=== PATIENT | female | born 1955 | race Caucasian/White ===

== ENCOUNTER 2017-05-20 08:18 | Day surgery (SDC) | payer MEDICAID, SELFPAY ==
--- NOTE | 2017-05-14 12:48 | EKG12_ITS ---
Test Reason : PRE OP Blood Pressure : / mmHG Vent. Rate : 050 BPM Atrial Rate : 050 BPM P-R Int : 170 ms QRS Dur : 096 ms QT Int : 438 ms P-R-T Axes : -04 -11 046 degrees QTc Int : 399 ms Sinus bradycardia Otherwise normal ECG Confirmed by HIGINIO CHAPMAN, HANY ([id number]), subeditor LJ HERNANDEZ ([id number]) on 05/15/2017 2:21:12 PM Referred By: Darryl Costello Confirmed By:HANY SYLVESTER MD
[2017-05-14 13:30] LABS: Hematocrit 41.7 % (37-47); Hemoglobin 13.6 g/dl (12.0-15.0); Mean Corp Hgb Conc 32.6 g/gl (32-36); Mean Corpuscular Hgb 31.3 pg (27.0-32.0); Mean Corpuscular Volume 96.1 fL (81-99); Mean Platelet Vol. 9.4 fl (6.2-12.0); Platelet Count 289 K/mm3 (150-450); RBC Distribution Width CV 13.8 % (11.6-14.6); RBC Distribution Width SD 47.4 fl (35.1-43.9); Red Blood Count 4.34 M/mm3 (4.2-5.4); Scan Indicated on CBC? Y/N NO
[2017-05-14 13:34] LABS: Prothrombin Time (Protime)PT. 12.8 SECONDS (11.7-14.9)
[2017-05-14 14:05] LABS: Partial Thromboplast Time 26.3 Seconds (24.1-36.2)
[2017-05-20] VITALS (7 sets, daily range): BP systolic 111–141; BP diastolic 60–80; PULSE 59–66; RESP 16; TEMP 36.2–36.7; O2SAT 95–100; BMI 37.6
[2017-05-20 09:01] LABS: Bedside Glucose 116 mg/dL (70-110)
--- NOTE | 2017-05-20 09:55 | EMB_PTH ---
PATIENT: DINESH LEDBETTER LOC: [facility] [place] U#:[id number] AGE/SX: 61/F ROOM: RE05/20/[address]: Dr. Darryl Costello MD : 1955 BED: DIS: 05/20/2017 SPEC #: [id number] RECD: 05/20/17 12:35 STATUS: AURELIA MYA #: [id number] RYAN: 05/20/17 09:[address]: Darryl Costello DEPT: SURGICAL PATHOLOGY RECD BY: Yaakov Snyder ENTERED: 05/20/17 13:08 SP TYPE: ENDOM BX/C NORMA DR: Dr. Selma Walker MD Tissues: Endometrium, NOS Procedures: Surgery Specimen Level IV HEADER OPERATION: Hysteroscopy, dilation and curettage PRE-OP DIAGNOSIS: Postmenopausal bleeding TISSUE SUBMITTED: Endometrial curettings MICROSCOPIC DIAGNOSIS Endometrium, curettings: Rare strips of benign superficial endometrium. Rare strips of benign superficial endocervix. Strips of benign superficial ectocervix. AM:georgina 05/21/17 MICROSCOPIC DESCRIPTION Slides are reviewed. GROSS DESCRIPTION Received in fixative is one container labeled with the patient's name and designated endometrial curettings. The specimen consists of multiple irregular fragments of red-batres soft tissue that in aggregate measure 3 x 1.5 x 0.1 cm. The specimen is totally submitted in one cassette. / AM:georgina 05/20/17 TC:5 CPT: 51401
--- NOTE | 2017-05-20 10:15 | PCM.DC ---
You will use the following diet at home:: No restrictions Your food should be the consistency of: Regular Discharge Activity: Return to Normal Activity, No Restrictions, May Drive, May not drive while taking narcotic pain medications., May Shower Return to work on:: 05/25/17 May resume sexual activity in: 3 weeks Call your doctor if your incision/area has: Sudden Increased Bleeding, Foul Smelling Discharge Call your doctor if you observe: Fever of 101 or Higher, Inability to urinate, Inability to have a bowel movement, Using more than one pad per hour, Shortness of breath, Chest pain, Calf discomfort, Uncontrolled pain Cleanse incision/area with: Soap & Water Allergies/Adverse Reactions: Allergies adhesive Allergy (Verified 05/13/17 09:55) Rash Iodinated Contrast- Oral and IV Dye [Iodinated Contrast Media - IV Dye] Allergy (Verified 05/13/17 09:55) Hives Medications to take at Discharge Cyanocobalamin [Vitamin B12] 500 mcg PO DAILY@0800 05/16/13 Paroxetine HCl [Paxil] 20 mg PO DAILY 05/16/13 calcium carbonate 500 mg calcium (1,250 mg) chewable tablet 500 mg PO BID tab 03/12/17 docusate sodium 100 mg capsule 100 mg PO QDAY 03/12/17 insulin glargine (U-100) 100 unit/mL (3 mL) subcutaneous pen 20 - 40 unit SC QHS 03/12/17 losartan 50 mg tablet 50 mg PO QHS 03/12/17 magnesium oxide 400 mg capsule 400 mg PO QDAY cap 03/12/17 metoprolol succinate ER 25 mg tablet,extended release 24 hr 25 mg PO DAILY tab 03/12/17 omega 0-nox-ukm-fish oil 1,000 mg (120 mg-180 mg) capsule 1,000 cap PO DAILY 03/12/17 vitamin,calcium,krflcwxa-ahal-wpxba acid tablet 1 tab PO QDAY 03/12/17 Ibuprofen [Motrin] 800 mg PO TID PRN PRN #30 tab 05/20/17 Oxycodone [Oxyir] 5 mg PO Q4H PRN PRN 3 Days #10 tab 05/20/17 The following prescriptions were given: Oxycodone [Oxyir] 5 mg PO Q4H PRN PRN 3 Days #10 tab PRN Reason: Severe Pain (6-12/02) Ibuprofen [Motrin] 800 mg PO TID PRN PRN #30 tab PRN Reason: pain or cramping Primary Care Physician: Selma Walker MD [Primary Care Provider] - Please Follow Up With: Darryl Costello MD When: one week Proposed Discharge Date: 05/20/17
--- NOTE | 2017-05-20 10:19 | PCM.OPRPT ---
Problem List (1) Post-menopausal bleeding Status: Chronic Report of Operation Date of Procedure: 05/20/17 Pre-Operative Diagnosis: Postmenopausal bleeding Post-Operative Diagnosis: Same Surgery/Procedure Performed:: Hysteroscopy, Dilation and Curettage Description of Surgical Findings:: Normal appearing cervix and endometrial cavity. Endometrial lining appeared thin. No polyps observed. grocery team member: None Type of Anesthesia:: MAC Anesthesiologist: Jono Patrick Special Medications: none Specimen's removed: Endometrial Curettings Drains: none Estimated Blood Loss (mL): minimal Fluids Replaced: 400cc LR Description of Procedure: Glendy was taken to the OR with IV running. She was given two grams of Cefotetan intravenously for surgical prophylaxis. MAC anesthesia was then introduced without complication. She was then prepped and draped in the dorsal lithotomy position. A red rubber catheter was used to drain the bladder. A weighted speculum was placed in the posterior vagina, the cervix identified and the anterior lip grasped with a single toothed tenaculum. The uterus was then sounded to 7 cm. The cervix was then serially dilated to 24 Syriac. A hysteroscope was then placed into the uterine cavity and findings were as mentioned above. The hysteroscope was removed and a sharp curettage was performed. Minimal tissue was obtained. The hysteroscope was replaced. All instruments were then removed from the vagina and uterus. Hemostasis was excellent. She was reversed from anesthesia and taken to the recovery room in stable condition. Sponge counts were correct. Grafts/Implants Used: none - Complications none - Admit VTE Documentation VTE Present on Admission: No VTE Mechan Device Prophylaxis: SCD's VTE Pharm Prophylaxis ordered?: No
== END 2017-05-20 11:35 | disposition home or self-care (01) ==
LOC: SDC 08:20 → AC 08:20
PROVIDERS: Family Provider Family Medicine; PCP Family Medicine; Visit Provider Obstetrics & Gynecology
PROC: 0UDB8ZZ Extraction of Endometrium, Via Natural or Artificial Opening Endoscopic (ICD-10-PCS; CPT 58558; principal; 2017-05-20 09:45)
DX: N95.0 Postmenopausal bleeding (principal); I49.3 Ventricular premature depolarization; E11.9 Type 2 diabetes mellitus without complications; I10 Essential (primary) hypertension; G47.30 Sleep apnea, unspecified; F32.9 Major depressive disorder, single episode, unspecified; F41.9 Anxiety disorder, unspecified; Z98.84 Bariatric surgery status; Z79.4 Long term (current) use of insulin; Z79.899 Other long term (current) drug therapy
CPT/HCPCS: 00952; 58558; 36415; 82962; 85027; 85610; 85730; 86850; 86900; 88305; J7120

== ENCOUNTER → 2017-08-19 14:33 | Outpatient (CLI) | payer MEDICAID, SELFPAY ==
--- NOTE | 2017-08-19 14:36 | BI_ITS ---
MAMMOGRAPHY - BILATERAL SCREENING REASON FOR EXAM: Female, 62 years old. Routine annual screening examination. PERTINENT HISTORY: Non-contributory. Remote right excisional breast biopsy. TECHNIQUE: Digital bilateral breast pieter (3D mammographic acquisition) in the CC and MLO projections. 2-D mediolateral oblique (MLO) and craniocaudad (CC) views of both breasts were obtained. CAD: Full Field Digital Mammography with Computer Added Detection was performed. COMPARISON: Comparison is made with prior examination June 19, 2014. FINDINGS: Breast Composition: The breasts are heterogeneously dense, which may obscure small masses. There are no dominant masses or suspicious calcifications. There is a 6.7 mm x 6 mm nodule in the upper medial portion of the left breast. Correlation with ultrasound is recommended. No other significant abnormalities are identified. BI/SCREENING MAMM (CAD), BILAT IMPRESSION: Subcentimeter nodule in the upper medial portion of the left breast as described. Correlation with ultrasound is recommended. ASSESSMENT CATEGORY: BIRADS Category 0: Incomplete. Need additional imaging evaluation. A letter regarding these results will be sent to the patient by the facility within 30 days. Approximately 10% of breast cancers are not detected by mammography. A normal mammogram should not delay biopsy of a clinically suspicious abnormality. [id number] Electronically Signed: Delbert Allen MD at 14:07 EDT Tel [phone], Service support ,
== END ==
PROVIDERS: Family Provider Family Medicine; PCP Family Medicine; Visit Provider Family Medicine
DX: Z12.31 Encounter for screening mammogram for malignant neoplasm of breast (principal)
CPT/HCPCS: 77063; 77067

== ENCOUNTER → 2017-08-31 14:10 | Outpatient (CLI) | payer MEDICAID, SELFPAY ==
--- NOTE | 2017-08-31 14:13 | US_ITS ---
STUDY: ULTRASOUND BREAST - LEFT REASON FOR EXAM: Female, 62 years old. Abnormal screening mammogram. TECHNIQUE: Axial and longitudinal images of the LEFT breast were performed with a high resolution ultrasound transducer. COMPARISON: Comparison is made with prior mammogram dated August 19, 2017. FINDINGS: LEFT Breast: There is a 6 mm x 6 mm x 3 mm well-defined hypoechoic solid nodule at the 12:00 position of the breast at 3 cm from the nipple. US/Breast Limited Unilateral IMPRESSION: The mammographic abnormality corresponds to a 6 mm x 6 mm x 3 mm well-defined hypoechoic nodule at the 12:00 breast at 3 cm from nipple. A biopsy is recommended for further evaluation. ASSESSMENT CATEGORY: BIRADS Category 4: Suspicious - Biopsy Should Be Considered. A letter regarding these results will be sent to the patient by the facility within 30 days. Electronically Signed: Delbert Allen MD at 8:20 EDT Tel [phone], Service support ,
== END ==
PROVIDERS: Family Provider Family Medicine; PCP Family Medicine; Visit Provider Family Medicine
DX: R92.8 Other abnormal and inconclusive findings on diagnostic imaging of breast (principal)
CPT/HCPCS: 76642

== ENCOUNTER → 2017-09-07 15:05 | Outpatient (CLI) | payer MEDICAID, SELFPAY ==
--- NOTE | 2017-09-07 14:15 | BRBX_PTH ---
PATIENT: DINESH LEDBETTER LOC: [facility] U#:[id number] AGE/SX: 69/F ROOM: RE09/07/[address]: Dr. Raghav Holman MD : 1955 BED: DIS: SPEC #: [id number] RECD: 09/07/17 15:04 STATUS: AURELIA MYA #: [id number] RYAN: 09/07/17 14:[address]: Raghav Holman DEPT: SURGICAL PATHOLOGY RECD BY: Alberto Butler ENTERED: 09/08/17 09:34 SP TYPE: BREAST BX OTHR DR: Dr. Selma Walker MD Tissues: Left breast, NOS Procedures: Surgery Specimen Level IV HEADER OPERATION: Ultrasound-guided mammotome biopsy left breast PRE-OP DIAGNOSIS: Abnormal mammogram R92.8 TISSUE SUBMITTED: Mammotome biopsy left breast ISCHEMIC TIME: 1 minute FIXATION TIME: 29 hours MICROSCOPIC DIAGNOSIS Left breast, ultrasound-guided mammotome core biopsy: Fibrocystic changes. Negative for atypia or malignancy. RUBINA:georgina 09/09/17 COMMENT Correlation with clinical, radiologic findings and appropriate follow up are necessary. MICROSCOPIC DESCRIPTION Slides are reviewed. GROSS DESCRIPTION Received in fixative is one container labeled with the patient's name and designated left breast tissue. The specimen consists of multiple irregular fragments of yellow-white soft tissue that in aggregate measure 1.2 x 0.6 x 0.1 cm. The specimen is totally submitted in one cassette. / AM:georgina 09/08/17 TC:5 CPT: 64978
== END ==
PROVIDERS: Visit Provider Surgery
DX: R92.8 Other abnormal and inconclusive findings on diagnostic imaging of breast (principal)
CPT/HCPCS: 88305

== ENCOUNTER → 2018-02-10 13:42 | Outpatient (CLI) | payer MEDICAID, SELFPAY ==
--- NOTE | 2018-02-10 13:44 | BI_ITS ---
MAMMOGRAPHY - UNILATERAL DIAGNOSTIC: LEFT BREAST REASON FOR EXAM: Female, 62 years old. Six-month follow-up examination of the left breast biopsy. PERTINENT HISTORY: Non-contributory. TECHNIQUE: Digital unilateral breast pieter (3D mammographic acquisition) in the CC and MLO projections. 2-D mediolateral oblique (MLO) and craniocaudad (CC) views of both breasts were obtained. CAD: Full Field Digital Mammography with Computer Added Detection was performed. COMPARISON: Comparison is made with prior study dated August 31, 2017 and August 20, 2007. FINDINGS: Breast Composition: The breasts are heterogeneously dense, which may obscure small masses. There are no dominant masses or suspicious calcifications. A tissue clip marker is seen in the superior retroareolar region of the breast and keep with prior biopsy. No other significant abnormalities are identified. BI/DIAG MAMM W/CAD, UNILAT IMPRESSION: Stable unilateral diagnostic mammogram. One year follow-up mammogram recommended. (A) ASSESSMENT CATEGORY: BIRADS Category 2: Benign. A letter regarding these results will be sent to the patient by the facility within 30 days. Approximately 10% of breast cancers are not detected by mammography. A normal mammogram should not delay biopsy of a clinically suspicious abnormality. Electronically Signed: Delbert Allen MD at 15:00 EST Tel [phone], Service support ,
--- NOTE | 2018-02-10 13:45 | US_ITS ---
STUDY: ULTRASOUND BREAST - LEFT REASON FOR EXAM: Female, 62 years old. Follow-up for left breast biopsy. TECHNIQUE: Axial and longitudinal images of the LEFT breast were performed with a high resolution ultrasound transducer. COMPARISON: Comparison is made with prior ultrasound dated August 31, 2017 and prior mammogram done earlier today. FINDINGS: LEFT Breast: There is a 6 mm x 6 mm x 3 mm hypoechoic nodule at the 12:00 position breast at 3 cm from the nipple. A metallic clip is seen within it. US/Breast Limited Unilateral IMPRESSION: 6 mm x 6 mm x 3 mm hypoechoic nodule at the 12:00 position in the breast at 3 cm from nipple. A tissue clip marker is significant. ASSESSMENT CATEGORY: BIRADS Category 2: Benign. A letter regarding these results will be sent to the patient by the facility within 30 days. Electronically Signed: Delbert Allen MD at 15:11 EST Tel [phone], Service support ,
--- OUTSIDE RECORDS SUMMARY | 2018-05-14 20:23 | XMS RPT_ITS ---
:1955 Author Organization OHIP Support Name Relationship Address Phone KHLOE, LUANNE Unavailable [address] + [place] [address] UE Unavailable Unavailable Unavailable KHLOE, LUANNE Unavailable [address] + [place] [address] UE Unavailable Unavailable Unavailable KHLOE, LUANNE Unavailable [address] +[phone] [place] [address] UE Unavailable Unavailable Unavailable KHLOE, LUANNE Unavailable [address] + [place] [address] UE Unavailable Unavailable Unavailable KHLOE, LUANNE Unavailable [address] + [place] [address] UE Unavailable Unavailable Unavailable KHLOE, LUANNE Unavailable [address] + [place] [address] UE Unavailable Unavailable Unavailable KHLOE, LUANNE Unavailable [address] + [place] [address] UE Unavailable Unavailable Unavailable KHLOE, LUANNE Unavailable [address] + [place] [address] UE Unavailable Unavailable Unavailable KHLOE, LUANNE Unavailable [address] +[phone] [place] [address] UE Unavailable Unavailable Unavailable KHLOE, LUANNE Unavailable [address] +[phone] [place] [address] UE Unavailable Unavailable Unavailable KHLOE, NORY Unavailable [address] +[phone] [place] [address] KHLOE, NORY Unavailable [address] [place] [address] NOT GIVEN Unavailable Unavailable Unavailable Care Team Providers Name Role Phone SELMA WALKER MD Consulting Unavailable WILLIAM DANIEL DO Primary Care Unavailable WILLIAM DANIEL DO Attending Unavailable WILLIAM DANIEL DO Admitting Unavailable PROVIDER, UNKNOWN Consulting Unavailable PROVIDER, UNKNOWN Consulting Unavailable Miedel, Selma Attending Unavailable Miedel, Selma Referring Unavailable Miedel, Selma Primary Care Unavailable SealDarryl johnson Attending Unavailable Miedel, Selma Primary Care Unavailable Seals, Darryl Referring Unavailable Miedel, Selma Attending Unavailable Miedel, Selma Primary Care Unavailable Otis, Waxahachie Attending Unavailable Seals, Darryl Referring Unavailable Miedel, Selma Attending Unavailable Miedel, Selma Primary Care Unavailable Manda, Raghav Attending Unavailable Miedel, Selma Referring Unavailable Miedel, Selma Primary Care Unavailable Deltona, Raghav Attending Unavailable Miedel, Selma Referring Unavailable Miedel, Selma Primary Care Unavailable [place]tona, Raghav Attending Unavailable Miedel, Selma Primary Care Unavailable [place], Raghav Referring Unavailable [place], Raghav Attending Unavailable Miedel, Selma Referring Unavailable ChicorelHeather péreze Attending Unavailable Miedel, Selma Referring Unavailable PROBLEMS PROBLEMS DATE TYPE CONDITION / CODE ATTENDING STATUS SOURCE 10/16/2017 Unknown 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, 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 / [facility] M75.42(ICD-10) Repository 09/08/2017 Unknown R92.8 - Other [place]tona, Raghav Active [facility] abnormal and Community inconclusive Hospital findings on Repository diagnostic imaging of breast / R92.8(ICD-10) 08/19/2017 Unknown Z12.31 - Encounter Miedel, Selma Active [facility] for screening Community mammogram for Hospital malignant neoplasm Repository of breast / Z12.31(ICD-10) 05/21/2017 Unknown G89.18 - Other acute Darryl Costello Active [facility] postprocedural pain Community / G89.18(ICD-10) Hospital Repository 06/24/2017 Unknown I10 - Essential Otis, Rogerio Active [facility] (primary) Community hypertension / Hospital I10(ICD-10) Repository 06/24/2017 Unknown R00.1 - Bradycardia, Otis, [place] Active [facility] unspecified / Community R00.1(ICD-10) Hospital Repository PROCEDURES PROCEDURES No Procedure Records FoundRESULTS RESULTS BREAST LIMITED Observed: 02/10/2018 Status: F Source: [facility] UNILATERAL 1:46 PM [facility] REPOSITORY [facility] Imaging Services [address] [place] [address] Breast Limited Unilateral MR#: [id number] Acct: [id number] Name: DINESH LEDBETTER Rep #: [id number] : 1955 F 62 From: Delbert Allen MD PCP: Selma Walker MD Status: REG CLI Study: Breast Limited Unilateral Date of Exam: 02/10/18 Exam# [id number] Ordering Dr: Selma Walker MD STUDY: ULTRASOUND BREAST - LEFT REASON FOR EXAM: Female, 62 years old. Follow-up for left breast biopsy. TECHNIQUE: Axial and longitudinal images of the LEFT breast were performed with a high resolution ultrasound transducer. COMPARISON: Comparison is made with prior ultrasound dated August 31, 2017 and prior mammogram done earlier today. FINDINGS: LEFT Breast: There is a 6 mm x 6 mm x 3 mm hypoechoic nodule at the 12:00 position breast at 3 cm from the nipple. A metallic clip is seen within it. US/Breast Limited Unilateral IMPRESSION: 6 mm x 6 mm x 3 mm hypoechoic nodule at the 12:00 position in the breast at 3 cm from nipple. A tissue clip marker is significant. ASSESSMENT CATEGORY: BIRADS Category 2: Benign. A letter regarding these results will be sent to the patient by the facility within 30 days. Electronically Signed: Delbert Allen MD at 15:11 EST Tel [phone], Service support , CC: Selma Walker MD Veneer Clipper: Signed DIAG MAMM W/CAD, Observed: 02/10/2018 Status: F Source: [place] 1:44 PM [facility] Imaging Services [address] [place] [address] DIAG MAMM W/CAD, UNILAT MR#: [id number] Acct: [id number] Name: DINESH LEDBETTER Rep #: [id number] : 1955 F 62 From: Delbert Allen MD PCP: Selma Walker MD Status: REG CLI Study: DIAG MAMM W/CAD, UNILAT Date of Exam: 02/10/18 Exam# [id number] Ordering Dr: Raghav Holman MD MAMMOGRAPHY - UNILATERAL DIAGNOSTIC: LEFT BREAST REASON FOR EXAM: Female, 62 years old. Six-month follow- up examination of the left breast biopsy. PERTINENT HISTORY: Non-contributory. TECHNIQUE: Digital unilateral breast pieter (3D mammographic acquisition) in the CC and MLO projections. 2-D mediolateral oblique (MLO) and craniocaudad (CC) views of both breasts were obtained. CAD: Full Field Digital Mammography with Computer Added Detection was performed. COMPARISON: Comparison is made with prior study dated August 31, 2017 and August 20, 2007. FINDINGS: Breast Composition: The breasts are heterogeneously dense, which may obscure small masses. There are no dominant masses or suspicious calcifications. A tissue clip marker is seen in the superior retroareolar region of the breast and keep with prior biopsy. No other significant abnormalities are identified. BI/DIAG MAMM W/CAD, UNILAT IMPRESSION: Stable unilateral diagnostic mammogram. One year follow-up mammogram recommended. (A) ASSESSMENT CATEGORY: BIRADS Category 2: Benign. A letter regarding these results will be sent to the patient by the facility within 30 days. Approximately 10% of breast cancers are not detected by mammography. A normal mammogram should not delay biopsy of a clinically suspicious abnormality. Electronically Signed: Delbert Allen MD at 15:00 EST Tel [phone], Service support , CC: Raghav Holman MD; Selma Walker MD Veneer Clipper: Signed ORTHOPEDIC VISIT Observed: 10/15/2017 Status: F Source: [place] REPORT 4:39 PM [facility] REPOSITORY [facility] Orthopaedics AND Sports Medicine [address] [place] [address] [address] [place] [address] OFFICE VISIT Date of Service: 10/15/17 MR#: [id number] Acct: [id number] Name: DINESH LEDBETTER Rep #: [id number] : 1955 Provider: Marlena Strong DO Age/Sex: 62/F Location: [facility] Status: Signed Intake Intake Visit Reasons: LEFT SHOULDER PAIN Is patient in pain?: Yes Allergies adhesive Allergy (Verified 10/15/17 15:27) Rash Iodinated Contrast- Oral and IV Dye [Iodinated Contrast Media - IV Dye] Allergy (Verified 10/15/17 15:27) Hives Medications Cyanocobalamin [Vitamin B12] 500 mcg PO DAILY@0800 05/16/13 [History Confirmed 10/15/17] Paroxetine HCl [Paxil] 20 mg PO DAILY 05/16/13 [History Confirmed 10/15/17] calcium carbonate 500 mg calcium (1,250 mg) chewable tablet 500 mg PO BID tab 03/12/17 [History Confirmed 10/15/17] docusate sodium 100 mg capsule 100 mg PO QDAY 03/12/17 [History Confirmed 10/15/17] losartan 50 mg tablet 50 mg PO QHS 03/12/17 [History Confirmed 10/15/17] magnesium oxide 400 mg capsule 400 mg PO QDAY cap 03/12/17 [History Confirmed 10/15/17] metoprolol succinate ER 25 mg tablet,extended release 24 hr 25 mg PO DAILY tab 03/12/17 [History Confirmed 10/15/17] omega 9-ghi-dvf-fish oil 1,000 mg (120 mg-180 mg) capsule 1,000 cap PO DAILY 03/12/17 [History Confirmed 10/15/17] vitamin,calcium,awifqanm-fraj-xwyyq acid tablet 1 tab PO QDAY 03/12/17 [History Confirmed 10/15/17] acetaminophen 500 mg tablet 500 mg PO Q4H PRN 09/03/17 [History Confirmed 10/15/17] biotin 1,000 mcg chewable tablet 4,000 mcg PO QDAY tab 09/03/17 [History Confirmed 10/15/17] chlorpheniramine 4 mg tablet 4 mg PO QHS tab 09/03/17 [History Confirmed 10/15/17] cholecalciferol (vitamin D3) 2,000 unit capsule 2,000 unit PO QDAY 09/03/17 [History Confirmed 10/15/17] PFSH Medical History Abnormal mammogram of left breast (Acute) Anxiety (Acute) Breast cyst (Acute) Frequent headaches (Acute) Hives (Acute) ulcers (Acute) Acid reflux (Chronic) Diabetes (Chronic) Hypertension (Chronic) Obstructive sleep apnea (Chronic) Seasonal allergies (Chronic) Surgical History History of dilatation and curettage (Acute) History of gastric bypass (Acute) History of right breast biopsy (Acute) Ganglion cyst (Inactive) H/O bariatric surgery (Inactive) H/O breast biopsy (Inactive) H/O dilation and curettage (Inactive) H/O umbilical hernia repair (Inactive) History of carpal tunnel surgery (Inactive) S/P carpal tunnel release (Inactive) corrected surgery of gland (Inactive) exploration right heel (Inactive) Family History Mother CVA (cerebral vascular accident) Hypertension Diabetes Father Arthritis Other Blood clotting disorder Cancer Social History Smoking Status: Never smoker alcohol intake: never substance use type: does not use HPI LEFT SHOULDER PAIN: Details: DINESH LEDBETTER is a 62 year old F here today for left shoulder pain. She notes that her shoulder is worse at night. Patient notes that she has difficulty sleeping. She raises her arm into the air and her pain decreases. Her shoulder is sore during the day. She has increased pain with range of motion. Patient feels like she has shoulder weakness. Patient complains of her fingers shaking which has worsened recently. She had an injection on 03/12/17 which was helpful for many months. Patient denies any MRI. ROS Const Reports system reviewed and no additional complaints, except as docu Eyes Reports system reviewed and no additional complaints, except as docu ENT Reports system reviewed and no additional complaints, except as docu Card Reports system reviewed and no additional complaints, except as docu Resp Reports system reviewed and no additional complaints, except as docu GI Reports system reviewed and no additional complaints, except as docu Reports system reviewed and no additional complaints, except as docu Musc Reports joint pain, Reports muscle weakness Skin/Breast Reports system reviewed and no additional complaints, except as docu Neuro Yes system reviewed and no additional complaints, except as docu Psych Reports system reviewed and no additional complaints, except as docu Endo Reports system reviewed and no additional complaints, except as docu Assessment AND Plan Plan if patient having issues, told to return. inejctions working so far and will continue to do injections and if needs another one may consider MRI to evaluate for surgical intervention. Orders Orders: Medications New: Coding Level of Care Code No Charge 10/15/17 1639 <Electronically signed by Marlena Strong DO> Date Marlena Strong DO Cosigner Signature: Date (if applicable) CC: SURGERY VISIT REPORT Observed: 09/22/2017 Status: F Source: [place] 4:56 PM [facility] REPOSITORY [facility] [address] [place] [address] [address] [place] [address] OFFICE VISIT Date of Service: 09/15/17 MR#: [id number] Acct: [id number] Name: KHLOEDINESH Chito Rep #: [id number] : 1955 Provider: Raghav Holman MD Age/Sex: 62/F Location: [facility] Status: Signed Intake Intake Visit Reasons: FU Lt Breast Mammotone Allergies adhesive Allergy (Verified 09/07/17 13:57) Rash Iodinated Contrast- Oral and IV Dye [Iodinated Contrast Media - IV Dye] Allergy (Verified 09/07/17 13:57) Hives Medications Cyanocobalamin [Vitamin B12] 500 mcg PO DAILY@0800 05/16/13 [History Confirmed 09/07/17] Paroxetine HCl [Paxil] 20 mg PO DAILY 05/16/13 [History Confirmed 09/07/17] calcium carbonate 500 mg calcium (1,250 mg) chewable tablet 500 mg PO BID tab 03/12/17 [History Confirmed 09/07/17] docusate sodium 100 mg capsule 100 mg PO QDAY 03/12/17 [History Confirmed 09/07/17] losartan 50 mg tablet 50 mg PO QHS 03/12/17 [History Confirmed 09/07/17] magnesium oxide 400 mg capsule 400 mg PO QDAY cap 03/12/17 [History Confirmed 09/07/17] metoprolol succinate ER 25 mg tablet,extended release 24 hr 25 mg PO DAILY tab 03/12/17 [History Confirmed 09/07/17] omega 9-ats-ufq-fish oil 1,000 mg (120 mg-180 mg) capsule 1,000 cap PO DAILY 03/12/17 [History Confirmed 09/07/17] vitamin,calcium,tomrwgha-epxo-bejbh acid tablet 1 tab PO QDAY 03/12/17 [History Confirmed 09/07/17] acetaminophen 500 mg tablet 500 mg PO Q4H PRN 09/03/17 [History Confirmed 09/07/17] biotin 1,000 mcg chewable tablet 4,000 mcg PO QDAY tab 09/03/17 [History Confirmed 09/07/17] chlorpheniramine 4 mg tablet 4 mg PO QHS tab 09/03/17 [History Confirmed 09/07/17] cholecalciferol (vitamin D3) 2,000 unit capsule 2,000 unit PO QDAY 09/03/17 [History Confirmed 09/07/17] [facility] Medical History Abnormal mammogram of left breast (Acute) Anxiety (Acute) Breast cyst (Acute) Frequent headaches (Acute) Hives (Acute) ulcers (Acute) Acid reflux (Chronic) Diabetes (Chronic) Hypertension (Chronic) Obstructive sleep apnea (Chronic) Seasonal allergies (Chronic) Surgical History History of dilatation and curettage (Acute) History of gastric bypass (Acute) History of right breast biopsy (Acute) Ganglion cyst (Inactive) H/O bariatric surgery (Inactive) H/O breast biopsy (Inactive) H/O dilation and curettage (Inactive) H/O umbilical hernia repair (Inactive) History of carpal tunnel surgery (Inactive) S/P carpal tunnel release (Inactive) corrected surgery of gland (Inactive) exploration right heel (Inactive) Family History Mother CVA (cerebral vascular accident) Hypertension Diabetes Father Arthritis Other Blood clotting disorder Cancer Social History Smoking Status: Never smoker alcohol intake: never substance use type: does not use HPI HPI HPI: DINESH LEDBETTER, is a 62 F who presents to the office today for postoperative evaluation for a ultrasound-guided hand-held mammotome core biopsy of her left breast which was completed on 09/07/2017. Pathology report came back as fibrocystic changes and negative for atypia or malignancy she is complaining of moderate amount of bruising. Exam Skin Other: Minimal bruising is identified there is no signs of cellulitis Assessment AND Plan Problems 1. Fibrocystic disease of left breast N60.12 Plan Patient will need to have a repeat mammogram and ultrasound on the left breast 6 months from the date of her last mammogram and ultrasound. She can follow up with me on an as-needed basis Orders Orders: Coding Level of Care Code Off vis,est,level 2 Diagnoses Fibrocystic disease of left breast N60.12 Laterality: left 09/22/17 1656 <Electronically signed by Raghav Holman MD> Date Raghav Holman MD Cosigner Signature: Date (if applicable) CC: Selma Walker MD SURGERY VISIT REPORT Observed: 09/14/2017 Status: F Source: [place] 1:18 PM [facility] REPOSITORY [facility] [address] [place] [address]. [address] [place], [place] [address] OFFICE VISIT Date of Service: 09/07/17 MR#: [id number] Acct: [id number] Name: DINESH LEDBETTER Rep #: [id number] : 1955 Provider: Raghav Holman MD Age/Sex: 62/F Location: [facility] Status: Signed Intake Intake Visit Reasons: L Breast BX Mammotone Tso Required: No Is patient in pain?: No Allergies adhesive Allergy (Verified 09/07/17 13:57) Rash Iodinated Contrast- Oral and IV Dye [Iodinated Contrast Media - IV Dye] Allergy (Verified 09/07/17 13:57) Hives Medications Cyanocobalamin [Vitamin B12] 500 mcg PO DAILY@0800 05/16/13 [History Confirmed 09/07/17] Paroxetine HCl [Paxil] 20 mg PO DAILY 05/16/13 [History Confirmed 09/07/17] calcium carbonate 500 mg calcium (1,250 mg) chewable tablet 500 mg PO BID tab 03/12/17 [History Confirmed 09/07/17] docusate sodium 100 mg capsule 100 mg PO QDAY 03/12/17 [History Confirmed 09/07/17] losartan 50 mg tablet 50 mg PO QHS 03/12/17 [History Confirmed 09/07/17] magnesium oxide 400 mg capsule 400 mg PO QDAY cap 03/12/17 [History Confirmed 09/07/17] metoprolol succinate ER 25 mg tablet,extended release 24 hr 25 mg PO DAILY tab 03/12/17 [History Confirmed 09/07/17] omega 8-rpj-hxh-fish oil 1,000 mg (120 mg-180 mg) capsule 1,000 cap PO DAILY 03/12/17 [History Confirmed 09/07/17] vitamin,calcium,creqkrgb-tasn-muxpd acid tablet 1 tab PO QDAY 03/12/17 [History Confirmed 09/07/17] acetaminophen 500 mg tablet 500 mg PO Q4H PRN 09/03/17 [History Confirmed 09/07/17] biotin 1,000 mcg chewable tablet 4,000 mcg PO QDAY tab 09/03/17 [History Confirmed 09/07/17] chlorpheniramine 4 mg tablet 4 mg PO QHS tab 09/03/17 [History Confirmed 09/07/17] cholecalciferol (vitamin D3) 2,000 unit capsule 2,000 unit PO QDAY 09/03/17 [History Confirmed 09/07/17] [facility] Medical History Abnormal mammogram of left breast (Acute) Anxiety (Acute) Breast cyst (Acute) Frequent headaches (Acute) Hives (Acute) ulcers (Acute) Acid reflux (Chronic) Diabetes (Chronic) Hypertension (Chronic) Obstructive sleep apnea (Chronic) Seasonal allergies (Chronic) Surgical History History of dilatation and curettage (Acute) History of gastric bypass (Acute) History of right breast biopsy (Acute) Ganglion cyst (Inactive) H/O bariatric surgery (Inactive) H/O breast biopsy (Inactive) H/O dilation and curettage (Inactive) H/O umbilical hernia repair (Inactive) History of carpal tunnel surgery (Inactive) S/P carpal tunnel release (Inactive) corrected surgery of gland (Inactive) exploration right heel (Inactive) Family History Mother CVA (cerebral vascular accident) Hypertension Diabetes Father Arthritis Other Blood clotting disorder Cancer Social History Smoking Status: Never smoker alcohol intake: never substance use type: does not use HPI HPI HPI: DINESH LEDBETTER, is a 62 F who presents to the office today for Office Procedures Biopsy Provider Documentation Preoperative diagnosis: Abnormal mammogram/ultrasound to left breast Postoperative diagnosis: The same Procedure: Ultrasound-guided hand-held mammotome breast biopsy of left breast Mariah Holman Procedure: Ultrasound of the left breast at the 12 o'clock position 3 cm from the nipple revealed the lesion in question. I prepped the breast with Betadine. I injected 1% lidocaine plain. I injected local posterior to the lesion. I made a skin maira. Under ultrasound guidance I placed the hand-held mammotome needle posterior to the lesion. Under ultrasound guidance numerous biopsies of this were made. Under ultrasound guidance a small titanium clip was placed. Sterile dressings were applied. The patient tolerated the procedure well. Alert Nirmala Yes Biopsy Breast Biopsy: 52795 US Guidance Procedure Time Out Time Out Informed consent given: Yes Consent signed: Yes Time out checklist: patient, procedure, site marked/identified, positioning of patient, supplies available, allergies confirmed, team agrees on procedure Time out staff in room: Yes Time out verified: Yes Time out date: 09/07/17 Time out time: 13:58 Assessment AND Plan Orders Orders: Coding Level of Care Code No Charge Additional Codes Biopsy - Breast Biopsy: 22005 US Guidance (19741) 09/14/17 1318 <Electronically signed by Raghav Holman MD> Date Raghav Holman MD [facility] Signature: Date (if applicable) CC: BREAST BIOPSY Observed: 09/07/2017 Status: F Source: [place] (CHOOSE SITE) 2:15 PM [facility] REPOSITORY Patient: DINESH LEDBETTER : 1955 (62/F) Acct Num: [id number] Phys: Manda CHAPMAN,Raghav Unit Num: [id number] Loc: [facility] Specimen: [id number] Received: 09/07/17 1504 Spec Type: BREAST BX TISSUES TISSUES: Left breast, NOS COMMENT Correlation with clinical, radiologic findings and appropriate follow up are necessary. GROSS DESCRIPTION Received in fixative is one container labeled with the patient's name and designated left breast tissue. The specimen consists of multiple irregular fragments of yellow-white soft tissue that in aggregate measure 1.2 x 0.6 x 0.1 cm. The specimen is totally submitted in one cassette. / AM:georgina 09/08/17 TC:5 CPT: 12361 HEADER OPERATION: Ultrasound-guided mammotome biopsy left breast PRE-OP DIAGNOSIS: Abnormal mammogram R92.8 TISSUE SUBMITTED: Mammotome biopsy left breast ISCHEMIC TIME: 1 minute FIXATION TIME: 29 hours MICROSCOPIC DESCRIPTION Slides are reviewed. MICROSCOPIC DIAGNOSIS Left breast, ultrasound-guided mammotome core biopsy: Fibrocystic changes. Negative for atypia or malignancy. SJ:georgina 09/09/17 Signed Akira Mukherjee 09/09/17 <signature on file> Performed By: #### PBRBX #### [facility] [address]. [place], [address] SURGERY VISIT REPORT Observed: 09/05/2017 Status: F Source: [place] 9:51 AM [facility] REPOSITORY [facility] [address] [place], [place] [address]. [address] [place] [address] OFFICE VISIT Date of Service: 09/03/17 MR#: [id number] Acct: [id number] Name: DINESH LEDBETTER Rep #: [id number] : 1955 Provider: Raghav Holman MD Age/Sex: 62/F Location: [facility] Status: Signed Intake Vital Signs09/03/17 Height 5 ft 7 in 09/03/17 Weight: 245 lb Intake Visit Reasons: Consult Lt Breast Birads 4 Tso Required: No Is patient in pain?: No Allergies adhesive Allergy (Verified 09/03/17 10:12) Rash Iodinated Contrast- Oral and IV Dye [Iodinated Contrast Media - IV Dye] Allergy (Verified 09/03/17 10:12) Hives Medications Cyanocobalamin [Vitamin B12] 500 mcg PO DAILY@0800 05/16/13 [History Confirmed 09/03/17] Paroxetine HCl [Paxil] 20 mg PO DAILY 05/16/13 [History Confirmed 09/03/17] calcium carbonate 500 mg calcium (1,250 mg) chewable tablet 500 mg PO BID tab 03/12/17 [History Confirmed 09/03/17] docusate sodium 100 mg capsule 100 mg PO QDAY 03/12/17 [History Confirmed 09/03/17] losartan 50 mg tablet 50 mg PO QHS 03/12/17 [History Confirmed 09/03/17] magnesium oxide 400 mg capsule 400 mg PO QDAY cap 03/12/17 [History Confirmed 09/03/17] metoprolol succinate ER 25 mg tablet,extended release 24 hr 25 mg PO DAILY tab 03/12/17 [History Confirmed 09/03/17] omega 0-ahg-ezf-fish oil 1,000 mg (120 mg-180 mg) capsule 1,000 cap PO DAILY 03/12/17 [History Confirmed 09/03/17] vitamin,calcium,ruodljwz-ptxr-mvdsz acid tablet 1 tab PO QDAY 03/12/17 [History Confirmed 09/03/17] acetaminophen 500 mg tablet 500 mg PO Q4H PRN 09/03/17 [History Confirmed 09/03/17] biotin 1,000 mcg chewable tablet 4,000 mcg PO QDAY tab 09/03/17 [History Confirmed 09/03/17] chlorpheniramine 4 mg tablet 4 mg PO QHS tab 09/03/17 [History Confirmed 09/03/17] cholecalciferol (vitamin D3) 2,000 unit capsule 2,000 unit PO QDAY 09/03/17 [History Confirmed 09/03/17] [facility] Medical History Abnormal mammogram of left breast (Acute) Anxiety (Acute) Breast cyst (Acute) Frequent headaches (Acute) Hives (Acute) ulcers (Acute) Acid reflux (Chronic) Diabetes (Chronic) Hypertension (Chronic) Obstructive sleep apnea (Chronic) Seasonal allergies (Chronic) Surgical History History of dilatation and curettage (Acute) History of gastric bypass (Acute) History of right breast biopsy (Acute) Ganglion cyst (Inactive) H/O bariatric surgery (Inactive) H/O breast biopsy (Inactive) H/O dilation and curettage (Inactive) H/O umbilical hernia repair (Inactive) History of carpal tunnel surgery (Inactive) S/P carpal tunnel release (Inactive) corrected surgery of gland (Inactive) exploration right heel (Inactive) Family History Mother CVA (cerebral vascular accident) Hypertension Diabetes Father Arthritis Other Blood clotting disorder Cancer Social History Smoking Status: Never smoker alcohol intake: never substance use type: does not use HPI HPI HPI: DINESH LEDBETTER, is a 62 F who presents to the office today for evaluation of an abnormal mammogram and ultrasound to her left breast. Patient had her mammograms and ultrasound completed at [facility] on 08/31/2017. This showed a mammographic abnormality which was confirmed with ultrasound located within the left breast at the 12 o'clock position approximately 3 cm from the nipple. It measures approximately 6 mm in size. She cannot palpate this she has not been complaining of any abnormalities in this area of the breast and other areas of the breast she can feel lumps or bumps which have been unchanged for some time. She has no previous history of breast biopsies. ROS General General: Yes fatigue; no weight change, appetite, colon cancer, breast cancer or weakness HEENT HEENT: No difficulty swallowing, eye injury, eye surgery, swollen glands or hoarseness Endo Endocrine: Yes diabetes mellitus; no thyroid disease, thyroid cancer, Hair loss, heat intolerance or cold intolerance Skin Skin: No rash or changing moles Breast Breast: Yes abnormal mammogram and abnormal US; no left breast lump, right breast lump, nipple discharge, breast pain or breast enlargement Musc Musculoskeletal: Yes back problems and arthritis; no rheumatoid arthritis, gout or joint pain Cardio Cardiovascular: Yes high blood pressure; no murmur, pacemaker, heart disease, atrial fibrillation, heart attack, heart stent, palpitations, shortness of breat with exertion or chest pain Psych Psychiatric: Yes anxiety; no depression or hearing voices Resp Respiratory: No shortness of breath, No sleep apnea, No cough, No COPD, No asthma, No emphysema, No wheezing Gastro Gastrointestinal: No abdominal pain, No nausea or vomiting, No diarrhea, No constipation, No blood in stool, No acid reflux, No hemorrhoids, No ulcers, No gallbladder problem, No black,tarry stools Pablo Hematologic: No blood thinners, No blood disorders, No bleeding, No anemia, No blood clots Neuro Neurologic: No system reviewed and no additional complaints, except as docu, No as per HPI, No abnormal walking, No abnormal hearing, No abnormal movements, No abnormal speech, No behavioral changes, No burning sensations, No confusion, No seizure-like activity, No unsteadiness, No dizziness, No localized weakness, No frequent falls, No headache(s), No lack of coordination, No loss of vision, No memory loss, No numbness, No other visual disturbances, No radiating pain, No restless legs, No sensory deficit, No fainting, No tingling, No tremor(s), No weakness, No other Exam [facility] Head: normal to inspection, normocephalic, atraumatic Mouth: moist mucous membranes, oropharynx normal Eyes General: appearance normal, both eyes and all related structures Sclera: sclerae normal Neck Neck: no lymphadenopathy noted, trachea midline Neck mass: No Thyroid: thyroid normal Lymphatic: no lymphadenopathy noted Chest Breast inspection: normal inspection of the breasts Breast Palpation: No nipple discharge Resp Other: Respiratory Exam: Deferred Cardio Heart Sounds: no murmurs Other: Cardiac Exam: Deferred GI Other: GI Exam: Deferred Other: Rectal Exam: Deferred Extrem Other: Extremity Exam: Deferred Assessment AND Plan Problems 1. Abnormal mammogram of left breast R92.8 Plan I have discussed above with the patient. I have recommended ultrasound guided needle core breast biopsy. I have described the procedure to the patient. I have discussed with the patient that sometimes the ultrasound lesion may be artifact and is user dependent and therefore prior to undergoing the procedure, the patient will have a definitive US to ensure that the lesion is truly present and is not artifact. A marker clip will be placed to identify the location. Patient has been counseled to the risks/benefits of the procedure. I have explained the risks of the surgery, including but not limited to: infection, bleeding, injury to any blood vessels/nerves, scar tissue, missing the lesion, further surgery, etc. - the patient understands and agrees to proceed. I have answered all of the patient's questions to her satisfaction and she has no further questions. Medications New: Discontinued: insulin glargine (U-100) (Basaglar KwikPen U-100 Insulin) Disc20 - 40 units Sub-Q QHS ontinued Reason: Order Completed Coding Level of Care Code Off vis,new,level 3 Diagnoses Abnormal mammogram of left breast R92.8 09/05/17 0951 <Electronically signed by Raghav Holman MD> Date Raghav Holman MD Cosigner Signature: Date (if applicable) CC: Selma Walker MD BREAST LIMITED Observed: 08/31/2017 Status: F Source: [place] UNILATERAL 2:13 PM [facility] REPOSITORY [facility] Imaging Services [facility] [place] [address] Breast Limited Unilateral MR#: [id number] Acct: [id number] Name: DINESH LEDBETTER Rep #: [id number] : 1955 F 62 From: Delbert Allen MD PCP: Selma Walker MD Status: REG CLI Study: Breast Limited Unilateral Date of Exam: 08/31/17 Exam# [id number] Ordering Dr: Selma Walker MD STUDY: ULTRASOUND BREAST - LEFT REASON FOR EXAM: Female, 62 years old. Abnormal screening mammogram. TECHNIQUE: Axial and longitudinal images of the LEFT breast were performed with a high resolution ultrasound transducer. COMPARISON: Comparison is made with prior mammogram dated August 19, 2017. FINDINGS: LEFT Breast: There is a 6 mm x 6 mm x 3 mm well-defined hypoechoic solid nodule at the 12:00 position of the breast at 3 cm from the nipple. US/Breast Limited Unilateral IMPRESSION: The mammographic abnormality corresponds to a 6 mm x 6 mm x 3 mm well-defined hypoechoic nodule at the 12:00 breast at 3 cm from nipple. A biopsy is recommended for further evaluation. ASSESSMENT CATEGORY: BIRADS Category 4: Suspicious - Biopsy Should Be Considered. A letter regarding these results will be sent to the patient by the facility within 30 days. Electronically Signed: Delbert Allen MD at 8:20 EDT Tel [phone], Service support , CC: Selma Walker MD Veneer Clipper: Signed SCREENING MAMM (CAD), Observed: 08/19/2017 Status: F Source: [place] BIL 2:36 PM [facility] REPOSITORY [facility] Imaging Services [address] [place] [id number] SCREENING MAMM (CAD), BILAT MR#: [id number] Acct: [id number] Name: DINESH LEDBETTER Rep #: [id number] : 1955 F 62 From: Delbert Allen MD PCP: Selma Walker MD Status: REG CLI Study: SCREENING MAMM (CAD), BILAT Date of Exam: 08/19/17 Exam# [id number] Ordering Dr: Selma Walker MD MAMMOGRAPHY - BILATERAL SCREENING REASON FOR EXAM: Female, 62 years old. Routine annual screening examination. PERTINENT HISTORY: Non-contributory. Remote right excisional breast biopsy. TECHNIQUE: Digital bilateral breast pieter (3D mammographic acquisition) in the CC and MLO projections. 2-D mediolateral oblique (MLO) and craniocaudad (CC) views of both breasts were obtained. CAD: Full Field Digital Mammography with Computer Added Detection was performed. COMPARISON: Comparison is made with prior examination June 19, 2014. FINDINGS: Breast Composition: The breasts are heterogeneously dense, which may obscure small masses. There are no dominant masses or suspicious calcifications. There is a 6.7 mm x 6 mm nodule in the upper medial portion of the left breast. Correlation with ultrasound is recommended. No other significant abnormalities are identified. BI/SCREENING MAMM (CAD), BILAT IMPRESSION: Subcentimeter nodule in the upper medial portion of the left breast as described. Correlation with ultrasound is recommended. ASSESSMENT CATEGORY: BIRADS Category 0: Incomplete. Need additional imaging evaluation. A letter regarding these results will be sent to the patient by the facility within 30 days. Approximately 10% of breast cancers are not detected by mammography. A normal mammogram should not delay biopsy of a clinically suspicious abnormality. [id number] Electronically Signed: Delbert Allen MD at 14:07 EDT Tel [phone], Service support , CC: Selma Walker MD Veneer Clipper: Signed OPERATIVE REPORT Observed: 05/20/2017 Status: F Source: [place] 10:50 AM [facility] REPOSITORY [facility] Medical Records Department [address] [place] [address] Operative Report 05/20/17 1019 MR#: [id number] Acct: [id number] Name: DINESH LEDBETTER Rep #: [id number] : 1955 61 From: Darryl Costello MD PCP: Selma Walker MD Status: REG SDC Y Location: [place] [address] Problem List (1) Post-menopausal bleeding Status: Chronic Report of Operation Date of Procedure: 05/20/17 Pre-Operative Diagnosis: Postmenopausal bleeding Post-Operative Diagnosis: Same Surgery/Procedure Performed:: Hysteroscopy, Dilation and Curettage Description of Surgical Findings:: Normal appearing cervix and endometrial cavity. Endometrial lining appeared thin. No polyps observed. c s s representative: None Type of Anesthesia:: MAC Anesthesiologist: Jono Patrick Special Medications: none Specimen's removed: Endometrial Curettings Drains: none Estimated Blood Loss (mL): minimal Fluids Replaced: 400cc LR Description of Procedure: Dinesh was taken to the OR with IV running. She was given two grams of Cefotetan intravenously for surgical prophylaxis. MAC anesthesia was then introduced without complication. She was then prepped and draped in the dorsal lithotomy position. A red rubber catheter was used to drain the bladder. A weighted speculum was placed in the posterior vagina, the cervix identified and the anterior lip grasped with a single toothed tenaculum. The uterus was then sounded to 7 cm. The cervix was then serially dilated to 24 Indonesian. A hysteroscope was then placed into the uterine cavity and findings were as mentioned above. The hysteroscope was removed and a sharp curettage was performed. Minimal tissue was obtained. The hysteroscope was replaced. All instruments were then removed from the vagina and uterus. Hemostasis was excellent. She was reversed from anesthesia and taken to the recovery room in stable condition. Sponge counts were correct. Grafts/Implants Used: none - Complications none - Admit VTE Documentation VTE Present on Admission: No VTE Mechan Device Prophylaxis: SCD's VTE Pharm Prophylaxis ordered?: No 05/20/17 1050 <Electronically signed by Darryl Costello MD> Date Darryl Costello MD CC: Darryl Costello MD; Selma Walker MD Signed DISCHARGE INSTRUCTION Observed: 05/20/2017 Status: F Source: [place] 10:16 AM [facility] REPOSITORY [facility] Medical Records Department [address] [place] [address] Instructions for Home/Discharge Instructions 05/20/17 1015 MR#: [id number] Acct: [id number] Name: DINESH LEDBETTER Rep #: [id number] : 1955 61 From: Darryl Costello MD PCP: Selma Walker MD Status: REG [facility] You will use the following diet at home:: No restrictions Your food should be the consistency of: Regular Discharge Activity: Return to Normal Activity, No Restrictions, May Drive, May not drive while taking narcotic pain medications., May Shower Return to work on:: 05/25/17 May resume sexual activity in: 3 weeks Call your doctor if your incision/area has: Sudden Increased Bleeding, Foul Smelling Discharge Call your doctor if you observe: Fever of 101 or Higher, Inability to urinate, Inability to have a bowel movement, Using more than one pad per hour, Shortness of breath, Chest pain, Calf discomfort, Uncontrolled pain Cleanse incision/area with: Soap AND Water Allergies/Adverse Reactions: Allergies adhesive Allergy (Verified 05/13/17 09:55) Rash Iodinated Contrast- Oral and IV Dye [Iodinated Contrast Media - IV Dye] Allergy (Verified 05/13/17 09:55) Hives Medications to take at Discharge Cyanocobalamin [Vitamin B12] 500 mcg PO DAILY@0800 05/16/13 Paroxetine HCl [Paxil] 20 mg PO DAILY 05/16/13 calcium carbonate 500 mg calcium (1,250 mg) chewable tablet 500 mg PO BID tab 03/12/17 docusate sodium 100 mg capsule 100 mg PO QDAY 03/12/17 insulin glargine (U-100) 100 unit/mL (3 mL) subcutaneous pen 20 - 40 unit SC QHS 03/12/17 losartan 50 mg tablet 50 mg PO QHS 03/12/17 magnesium oxide 400 mg capsule 400 mg PO QDAY cap 03/12/17 metoprolol succinate ER 25 mg tablet,extended release 24 hr 25 mg PO DAILY tab 03/12/17 omega 6-ozs-ktc-fish oil 1,000 mg (120 mg-180 mg) capsule 1,000 cap PO DAILY 03/12/17 vitamin,calcium,vdbaldtk-vcwx-kbboj acid tablet 1 tab PO QDAY 03/12/17 Ibuprofen [Motrin] 800 mg PO TID PRN PRN #30 tab 05/20/17 Oxycodone [Oxyir] 5 mg PO Q4H PRN PRN 3 Days #10 tab 05/20/17 The following prescriptions were given: Oxycodone [Oxyir] 5 mg PO Q4H PRN PRN 3 Days #10 tab PRN Reason: Severe Pain (-12/02) Ibuprofen [Motrin] 800 mg PO TID PRN PRN #30 tab PRN Reason: pain or cramping Primary Care Physician: Selma Walker MD [Primary Care Provider] - Please Follow Up With: Darryl Costello MD When: one week Proposed Discharge Date: 05/20/17 05/20/17 1016 <Electronically signed by Darryl Costello MD> Date Darryl Costello MD CC: Selma Walker MD ENDOMETRIAL BX/CURETTINGS Observed: 05/20/2017 Status: F Source: [place] 9:55 AM [facility] REPOSITORY Patient: DINESH LEDBETTER : 1955 (61/F) Acct Num: [id number] Phys: Darryl Costello MD Unit Num: [id number] Loc: [facility] Specimen: [id number] Received: 05/20/17 - 1235 Spec Type: ENDOM BX/C TISSUES TISSUES: Endometrium, NOS GROSS DESCRIPTION Received in fixative is one container labeled with the patient's name and designated endometrial curettings. The specimen consists of multiple irregular fragments of red-batres soft tissue that in aggregate measure 3 x 1.5 x 0.1 cm. The specimen is totally submitted in one cassette. / AM:georgina 05/20/17 TC :5 CPT: 76428 HEADER OPERATION: Hysteroscopy, dilation and curettage PRE-OP DIAGNOSIS: Postmenopausal bleeding TISSUE SUBMITTED: Endometrial curettings MICROSCOPIC DESCRIPTION Slides are reviewed. MICROSCOPIC DIAGNOSIS Endometrium, curettings: Rare strips of benign superficial endometrium. Rare strips of benign superficial endocervix. Strips of benign superficial ectocervix. AM:georgina 05/21/17 Signed Greg Niesha 05/21/17 <signature on file> Performed By: #### PEMB #### [facility] Laboratory [address] [place], [place], [address] BEDSIDE GLUCOSE Collected: 05/20/2017 Status: F Source: [place] 8:47 AM [facility] REPOSITORY TYPE CODE TESTS RESULT OUT OF REFERENCE UNITS RANGE LAB L501.080 70-110 mg/dL High BEDSIDE GLU 116 Result Comment: MANAGEMENT OF PATIENT CARE PER NURSING PROTOCOL Performed By: #### L501.080 #### [facility] Laboratory Point of Care [address] [facility] [place] [address] EMERGENCY DEPARTMENT Observed: 05/16/2017 Status: F Source: [facility] SUMMARY 11:38 PM [facility] EMERGENCY DEPARTMENT SUMMARY NAME NUMBER SEX AGE ADMIT DISC TYPE MED.RECORD# KHLOE MONTIEL [id number] F 61 04/18/17 04/18/17 E.RCam [id number] ROOM:[facility] DATE OF :1955 PHYSICIAN NO.:[id number] PHYSICIAN NAME:DR. WILLIAM DANIEL D.O. PHYSICIAN: CHIEF COMPLAINT: Congestion. HISTORY OF PRESENT ILLNESS: This is a 61-year-old female who presents complaining of headache, cough with congestion and a little sore throat which started earlier today. The patient reports that her family members have been passing around these symptoms over the past month. She was concerned they may have the flu and wanted to be evaluated. The patient denies any associated shortness of breath, chest pain, fevers or chills. PAST MEDICAL HISTORY: Hypertension and diabetes. PAST SURGICAL HISTORY: Bariatric surgery. ALLERGIES: No known drug allergies. SOCIAL HISTORY: Lives with family. Does not smoke, use alcohol or illicit drugs. IMMUNIZATIONS: Up to date on immunizations. REVIEW OF SYSTEMS: Ten point review of systems was obtained and is positive for cough, congestion, sore throat and headache. It is other negative. PHYSICAL EXAMINATION: VITAL SIGNS: Blood pressure 146/97, pulse 82, respiratory rate 18, temperature 97.9, pulse oximetry 96% on room air. GENERAL: The patient is alert, awake and in no acute distress. HEENT: Head is normocephalic and atraumatic. Pupils are equally round and reactive to light and accommodation. Extraocular muscles are intact. Mucous membranes are moist. Tympanic membranes are intact and clear bilaterally. Oropharynx demonstrates no edema or exudate. There is some cobblestoning likely from postnasal drip. NECK: Neck is supple. Trachea is midline. No cervical adenopathy appreciated. CARDIO: Cardiac exam reveals regular rate and rhythm. No murmurs appreciated. LUNGS: Lungs are clear to auscultation bilaterally. ABDOMEN: Abdomen is soft, nontender and nondistended. EXTREMITIES: Extremities demonstrate no edema or gross deformity. Peripheral pulses are intact and equal bilaterally. Normal muscle strength and full range of motion. Motor and sensory are grossly intact. PSYCH: The patient has appropriate mood and behavior. DIAGNOSTIC DATA: Flu swab was negative. Rapid Strep was negative. MEDICAL DECISION MAKING/EMERGENCY DEPARTMENT COURSE: The patient is afebrile, nontoxic and in no acute distress. Although my concern is low regarding flu and/or Strep, the patient insists that they must be tested, therefore, flu swab and Strep were obtained. Diagnostic results were discussed with the patient. She expressed understanding and is agreeable with the plan. DIAGNOSIS: Viral syndrome. PLAN/DISPOSITION: The patient is encouraged to continue the use of decongestant and antihistamine as needed for the congestion, and ibuprofen for fever or pain. The patient is agreeable with the plan. She was discharged in stable condition. D: William Daniel DO TD: 04:44 JOB #: [id number] Electronically signed by: DR. WILLIAM DANIEL D.O. 05/16/17 23:38 Transcribed by: amanda 04/19/2017 16:53 12 LEAD ELECTROCARDIOGRAM Observed: 05/15/2017 Status: F Source: [place] 2:21 PM [facility] REPOSITORY [facility] Cardiovascular Services [address] [place] [address] 12 Lead EKG 05/14/17 1317 MR#: [id number] Acct: [id number] Name: DINESH LEDBETTER Rep #: [id number] : 1955 61 From: Rogerio Berg MD Attending Dr: Darryl Costello MD Status: PRE SDC Ordering Dr: Darryl Costello MD Date: 05/14/17 Location: [facility] Sex: F C Admitted: Test Reason : PRE OP Blood Pressure : / mmHG Vent. Rate : 050 BPM Atrial Rate : 050 BPM P-R Int : 170 ms QRS Dur : 096 ms QT Int : 438 ms P-R-T Axes : -04 -11 046 degrees QTc Int : 399 ms Sinus bradycardia Otherwise normal ECG Confirmed by OTIS CHAPMAN, ROGERIO ([id number]), editor index LJ HERNANDEZ ([id number]) on 05/15/2017 2:21:12 PM Referred By: Darrly Costello Confirmed By:ROGERIO BERG MD 05/15/17 1421 Date Rogerio Berg MD CC: Darryl Costello MD; Selma Walker MD Signed CBC-COMPLETE BLOOD CNT Collected: 05/14/2017 Status: F Source: [place] NO DIFF 12:33 PM [facility] REPOSITORY TYPE CODE TESTS RESULT OUT OF RANGE REFERENCE UNITS LAB L100.1000 4.4-11.0 K/mm3 Normal WBC 7.0 LAB L100.1200 4.2-5.4 M/mm3 Normal RBC 4.34 LAB L100.1300 12.0-15.0 g/dl Normal HGB 13.6 LAB L100.1400 37-47 % Normal HCT 41.7 LAB L100.1500 81-99 fL Normal MCV 96.1 LAB L100.1600 27.0-32.0 pg Normal MCH 31.3 LAB L100.1700 32-36 g/gl Normal MCHC 32.6 LAB L100.1810 11.6-14.6 % Normal RDW CV 13.8 LAB L100.1820 35.1-43.9 fl High RDW SD 47.4 LAB L100.1900 150-450 K/mm3 Normal PLT 289 LAB L100.2000 6.2-12.0 fl Normal MPV 9.4 Performed By: #### L100.0500 #### [facility] Laboratory [address] [place], [place], [id number] PROTHROMBIN TIME W/INR Collected: 05/14/2017 Status: F Source: [place] 12:33 PM [facility] REPOSITORY TYPE CODE TESTS RESULT OUT OF RANGE REFERENCE UNITS LAB L300.4150 11.7-14.9 SECONDS Normal PROTIME 12.8 LAB L300.4200 Normal INR 1.0 Performed By: #### L300.3900, L300.4310 #### [facility] Laboratory [address] [place], [place], [id number] PARTIAL THROMBOPLAST Collected: 05/14/2017 Status: F Source: [facility] 12:33 PM [facility] REPOSITORY TYPE CODE TESTS RESULT OUT OF RANGE REFERENCE UNITS LAB L300.4310 24.1-36.2 Seconds Normal PTT 26.3 Performed By: #### L300.3900, L300.4310 #### [facility] Laboratory [address] [facility] [id number] TYPE AND SCREEN Collected: 05/14/2017 Status: F Source: [place] 12:33 [facility] REPOSITORY Order Comment: Surgery Date: 05/20/17 Hx of Preganancy in last 3 Months No Ever experience any problems with transfusion(s)? N Hx of Transfusion in last 3 Months N Reason for Type AND Screen/Red Cells: SURGERY SURGICAL PROCEDURE: D AND C TYPE CODE TESTS RESULT OUT OF RANGE REFERENCE UNITS LAB B10.0800 A Normal BLOOD TYPE GEL POSITIVE LAB B100.4000 Normal Antibody NEGATIVE Screen Performed By: #### B101.7475 #### [facility] Laboratory [address] [facility] [place], [place], [address] Observed: 04/18/2017 Status: F Source: [place] RAPID STREP 9:10 PM [facility] REPOSITORY Rapid Strep NEG:GRP A STREP INTERNAL QC PASS EXTERNAL QC DONE? YES Performed By: #### [id number] #### [place] [address] Observed: 04/18/2017 Status: F [facility] VIRUS RAPID 9:10 PM [facility] A/B REPOSITORY INFLUENZA A NEGATIVE INFLUENZA B NEGATIVE INTERNAL NEG QC PASS INTERNAL POS QC PASS EXTERNAL QC DONE? YES A NEGATIVE TEST RESULT DOES NOT EXCLUDE INFECTION WITH INFLUENZA A OR B. THEREFORE, THE RESULTS OBTAINED FROM THIS FLU TEST SHOULD BE USED IN CONJUCTION WITH CLINICAL FINDINGS TO MAKE AN ACCURATE DIAGNOSIS. INDIVIDUALS WHO HAVE RECEIVED NASALLY ADMINISTERED INFLUENZA A VACCINE MAY TEST POSITIVE IN COMMERCIALLY AVAILABLE INFLUENZA RAPID DIAGNOSTIC TESTS FOR UP TO THREE DAYS. Performed By: #### [id number] #### [place] [address] Observed: 04/18/2017 Status: F Source: [place] LIZARR[place] CULT STREP REFLEX 9:10 PM [facility] ONLY REPOSITORY CULT STREP REFLEX ONLY _REFLEX STREP SCREEN CULTURE ONLY_ M I C R O B I O L O G Y R E P O R T FINAL Antimicrobial Susceptibility and Organism Identification Report Specimen Number : [id number] Requested : 04/18/17 Specimen Source : THROAT Collected : 04/18/17 21:10 [place] [facility] : Emergency Room Received : 04/18/17 21:10 Requesting Physician : frandy Patient/Specimen Tests and Comments Specimen Comments FINAL REPORT: Negative for Group A Beta Strep Tech : Source : THROAT ID # : [id number] FINAL Report Date : / / : Collected : 04/18/17 21:10 04/20/17.912.KINDRA. 04/20/17.912.KINDRA.COMPLETE Performed By: #### [id number] #### [facility],[address] [address] ALLERGIES ALLERGIES DATE TYPE / CODE NAME / CODE REACTION SEVERITY SOURCE 10/15/2017 Drug Iodinated Hives Unknown [facility] Allergy/[facility] Contrast[facility] 326362(SNOM and IV Repository ED CT) Dye/[id number](R XNORM) 10/15/2017 Drug adhesive/[id number] Rash Unknown [facility] Allergy/[facility] 245(RXNORM) [facility] 362515(SNOM Repository ED CT) Drug IODINE/[id number]( Moderate [facility] Allergy/416 RXNORM) ([facility] 405155(SNOM Modifier) Repository ED CT) (Qualifier Value) ENCOUNTERS ENCOUNTERS ADMIT/DISCHARGE ACCOUNT ADMITTING ENCOUNTER LOCATION SOURCE NUMBER CLASS 02/10/2018 [id number] [facility] [address] [facility] Repository 10/15/2017/ [id number] Ambulatory BMSBuilding:B [place] 8 7 [facility] Repository 09/15/2017/ [id number] Ambulatory BMSBuilding:B [place] 8 3 [facility] Repository 09/07/2017 [id number] Ambulatory [place] [facility] ing:LABSPEC Repository 09/07/2017/ [id number] Ambulatory BMSBuilding:B [place] 8 2 [facility] Repository 09/03/2017/ [id number] Ambulatory BMSBuilding:B [place] 8 6 [facility] Repository 08/31/2017 [id number] Ambulatory [place] 4 [facility] ing:OPUS Repository 08/19/2017 [id number] Ambulatory [place] 6 [facility] ing:OPBI Repository 05/20/2017/ [id number] Ambulatory [place] 8 2 [facility] ing:SDC Repository 05/14/2017 [id number] Ambulatory BMSBuilding:W [place] 9 [facility] Repository 04/18/2017/ [id number] FRANDY, Emergency Buildin[address] [place] [address] WILLIAM DO oom: ERBed: C [facility] Repository PAYERS PAYERS ENCOUNTER GUARANTOR PAYER SUBSCRIBER SOURCE 02/10/2018 DINESH [id number] Primary Insurance:[facility] DINESH POOLE: [place] DELGADILLO [facility] [id number], Number: [facility] [place] [id number]: [id number] Repository Date:8898-24-37IN BOX ([address] [address]XE: 02/10/2018 Secondary NOT GIVENUNK [place] Insurance:SELF PAY [facility] Number: Effective Repository Date:2018-02-08 10/15/2017 DINESH [id number] Primary Insurance:[facility] DINESH POOLE: [place] [facility] [id number], Number: [facility] [id number]: [id number] Repository Date:7285-26-86EH BOX () [address] [place] [address]PN: 10/15/2017 Secondary NOT GIVENUNK [place] Insurance:SELF PAY [facility]: Effective Repository Date:2017-10-15 09/15/2017 DINESH [id number] Primary Insurance:[facility] DINESH AZULB: [place] [facility] PLANPolicy [id number], Number: [facility] [id number]: [id number] Repository Date:6397-16-07RY BOX () [address] [place] [address] 38201EC: 09/15/2017 Secondary NOT GIVENUNK [place] Insurance:SELF PAY [facility] Number: Effective Repository Date:2017-09-07 09/07/2017 DINESH [id number] Primary Insurance:[facility] DINESH AZULB: [place] [facility] PLANPolicy [id number], Number: [facility] [id number]: [id number] Repository Date:0458-37-00VH BOX () [address] [place] [address]2521BF: 09/07/2017 Secondary NOT GIVENUNK [place] Insurance:SELF PAY [facility] Number: Effective Repository Date:2017-09-07 09/07/2017 DINESH Dale [id number] Primary Insurance:[facility] DINESH POOLE: [place] [facility] PLANPolicy [id number], Number: [facility] [id number]: [id number] Repository Date:5378-37-91XE BOX () [address] [place] [address]64[address]QU: 09/07/2017 Secondary NOT GIVENUNK [place] Insurance:SELF PAY [facility] Number: Effective Repository Date:2017-09-07 09/03/2017 DINESH [id number] Primary Insurance:[facility] DINESH AZULB: [place] [facility] [employer] PLANPolicy [id number], Number: [facility] [id number]: [id number] Repository Date:6307-84-50GK BOX () [address] [place] [address] 50539QL: 09/03/2017 Secondary NOT GIVENUNK [place] Insurance:SELF PAY [facility] Number: Effective Repository Date:2017-09-03 08/31/2017 DINESH [id number] Primary Insurance:[facility] DINESH Dale JORGE ALBERTOB: [place] [facility] PLANPolicy [id number], Number: [facility] [id number]: [id number] Repository Date:1051-43-54BL BOX () [address] [place] [address] 90657GF: 08/31/2017 Secondary NOT GIVENUNK [place] Insurance:SELF PAY [facility] Number: Effective Repository Date:2017-08-27 08/19/2017 DINESH [id number] Primary Insurance:[facility] DINESH Dale ZULEMA: [place] [facility] PLANPolicy [id number], Number: [facility] [id number]: [id number] Repository Date:6382-00-68MS BOX () [address] [place] [address] 40171BT: 08/19/2017 Secondary NOT GIVENUNK [place] Insurance:SELF PAY [facility] Number: Effective Repository Date:2017-05-18 05/20/2017 DINESH Dale [id number] Primary Insurance:[facility] DINESH Dale ZULEMA: [place] [facility] PLANPolicy [id number], Number: [facility] [id number]: [id number] Repository Date:8234-88-94CD BOX () [address] [place] [address] 087[address]KX: 05/20/2017 Secondary NOT GIVENUNK [place] Insurance:SELF PAY [facility] Number: Effective Repository Date:2017-04-06 05/14/2017 DINESH Dale [id number] Primary Insurance:[facility] DINESH POOLE: [place] [facility] [id number], Number: [facility] [id number]: [id number] Repository Date:4921-07-64KK BOX () [address] [place] [address]WA: 05/14/2017 Secondary NOT GIVENUNK [place] Insurance:SELF PAY [facility] Number: Effective Repository Date:2017-05-14 04/18/2017 DINESH POOLE: Primary DINESH POOLE: Danilo Lizarraga [id number] Insurance:[facility] [id number] [place] [address], [place] [address]Ipg: Number: [id number] () Date:Plan Name:VIC ECHOLS [id number]:
== END ==
PROVIDERS: Family Provider Family Medicine; PCP Family Medicine; Referring Provider Family Medicine; Visit Provider Family Medicine
DX: N60.12 Diffuse cystic mastopathy of left breast (principal)
CPT/HCPCS: 76642; 77061; 77065; G0279

== ENCOUNTER → 2018-12-14 | Outpatient (CLI) | payer MEDICAID, SELFPAY ==
[2017-09-03 10:11] VITALS: BMI 38.3
--- NOTE | 2018-12-14 12:03 | RAD_ITS ---
STUDY: X-RAY - PELVIS AND RIGHT HIP REASON FOR EXAM: Female, 63 years old. Pain after fall 2 weeks ago. TECHNIQUE: 3 views of the pelvis and hip. COMPARISON: None. FINDINGS: There is a non-specific bowel gas pattern. Normal visualized soft tissue structures. There is narrowing with cortical sclerosis and osteophyte formation of the sacroiliac joint consistent with degenerative osteoarthritic changes. Normal iliac wings and visualized sacrum. Normal bilateral superior and inferior pubic rami. Normal pubic symphysis. Normal bilateral ischial tuberosities. Normal visualized right femoral head. Normal right acetabulum. There is mild articular joint space narrowing of the right hip. RAD/HIP, UNI W/ Pelvis 2-3 Views IMPRESSION: Mild degenerative changes of the right hip. There is no fracture or dislocation. Electronically Signed: Ronnie Bonilla DO at 20:00 EDT Tel [phone], Service support ,
== END | disposition home or self-care (01) ==
LOC: RAD 12:02
PROVIDERS: Family Provider Family Medicine; PCP Family Medicine; Referring Provider Family Medicine; Visit Provider Family Medicine
DX: M25.551 Pain in right hip (principal)
CPT/HCPCS: 73502

== ENCOUNTER → 2020-06-01 12:43 | Outpatient (CLI) | payer SELFPAY ==
--- NOTE | 2020-06-01 12:54 | BI_ITS ---
MAMMOGRAPHY - BILATERAL SCREENING REASON FOR EXAM: Female, 64 years old. Routine annual screening examination. PERTINENT HISTORY: Non-contributory. History of prior left ultrasound-guided breast biopsy and right excisional breast biopsy. TECHNIQUE: Digital bilateral breast daivd (3D mammographic acquisition) in the CC and MLO projections. 2-D mediolateral oblique (MLO) and craniocaudad (CC) views of both breasts were obtained. CAD: Full Field Digital Mammography with Computer Added Detection was performed. COMPARISON: Comparison is made with prior examination dated 08/19/2017 and 02/10/2018. FINDINGS: Breast Composition: The breasts are heterogeneously dense, which may obscure small masses. There are no dominant masses or suspicious calcifications. The previously seen 6 mm nodular density in the slightly upper medial portion of the left breast has decreased in size. A tissue clip marker is seen in the slightly upper lateral portion of the left breast. No other significant abnormalities are identified. BI/SCRN MAMM (CAD)W/DAVID BILAT IMPRESSION: Stable bilateral screening mammogram. Yearly follow-up mammogram recommended. (A) ASSESSMENT CATEGORY: BIRADS Category 2: Benign. A letter regarding these results will be sent to the patient by the facility within 30 days. Approximately 10% of breast cancers are not detected by mammography. A normal mammogram should not delay biopsy of a clinically suspicious abnormality. [id number] Electronically Signed: Delbert Allen MD at 11:26 EDT , Service support ,
== END ==
PROVIDERS: PCP Family Medicine; Referring Provider Family Medicine; Visit Provider Family Medicine
DX: Z12.31 Encounter for screening mammogram for malignant neoplasm of breast (principal)
CPT/HCPCS: 77063; 77067

== ENCOUNTER 2021-06-11 16:58 | Emergency (ER) | payer MEDICARE, BC, SELFPAY ==
[2021-06-11 16:59] VITALS: BP 127/65; PULSE 74; RESP 15; TEMP 36.1; O2SAT 97; BMI 35.6
--- NOTE | 2021-06-11 17:21 | EDS_ITS ---
HPI HPI - GI History of Present Illness Chief Complaint: Diarrhea Detail of Chief Complaint: Diarrhea that started 7 days ago Informant: patient Narrative Narrative: Patient presents to the emergency department with complaint of diarrhea x7 days. Patient states that her had similar illness but his did not last this long. She has had some nausea but no vomiting. She describes some intermittent abdominal cramping. Patient states she still having 6-7 watery stools a day. Patient denies recent travel. She denies antibiotic usage. She denies blood in her stool. She denies any fevers. [facility] Medical History (Updated 06/11/21 @ 19:[address] Perla Ceja, DO) Abnormal mammogram of left breast Acid reflux Anxiety Breast cyst Diabetes Frequent headaches Hives Hypertension Obstructive sleep apnea Seasonal allergies ulcers Home Medications cyanocobalamin (vitamin B-12) 500 mcg PO DAILY@0800 05/16/13 [History Last Taken Unknown] paroxetine HCl 20 mg PO DAILY 05/16/13 [History Last Taken Unknown] calcium carbonate 500 mg calcium (1,250 mg) chewable tablet 500 mg PO BID tab 03/12/17 [History Last Taken Unknown] docusate sodium 100 mg capsule 100 mg PO QDAY 03/12/17 [History Last Taken Unknown] losartan 50 mg tablet 50 mg PO QHS 03/12/17 [History Last Taken Unknown] magnesium oxide 400 mg PO QDAY cap 03/12/17 [History Last Taken Unknown] metoprolol succinate 25 mg tablet,extended release 24 hr 25 mg PO DAILY tab 03/12/17 [History Last Taken 05/20/17 06:00] omega 6-xdv-yzi-fish oil 1,000 mg (120 mg-180 mg) capsule 1,000 cap PO DAILY 03/12/17 [History Last Taken Unknown] prenat.vits,jarocho,phq-hwmk-imwqx 1 tab PO QDAY 03/12/17 [History Last Taken Unknown] acetaminophen 500 mg tablet 500 mg PO Q4H PRN 09/03/17 [History Last Taken Unknown] biotin 1,000 mcg chewable tablet 4,000 mcg PO QDAY tab 09/03/17 [History Last Taken Unknown] chlorpheniramine maleate 4 mg tablet 4 mg PO QHS tab 09/03/17 [History Last Taken Unknown] cholecalciferol (vitamin D3) 50 mcg (2,000 unit) capsule 2,000 unit PO QDAY 09/03/17 [History Last Taken Unknown] Kenalog 10 mg/mL suspension for injection 80 mg INTRAARTIC ONCE #8 ml NS 10/15/17 [Clinic Last Taken Unknown] diphenoxylate-atropine [Lomotil] 2 tab PO Q8H PRN #20 tab 06/11/21 [Rx Last Taken Unknown] ondansetron 4 mg PO Q8H PRN PRN #10 tab 06/11/21 [Rx Last Taken Unknown] Allergy/AdvReac Type Severity Reaction Status Date / Time adhesive Allergy Rash Verified 06/11/21 16:59 Iodinated Contrast Media Allergy Hives Verified 06/11/21 16:59 [Iodinated Contrast Media - IV Dye] Family History Mother CVA (cerebral vascular accident) Hypertension Diabetes Father Arthritis Other Blood clotting disorder Cancer Surgical History corrected surgery of gland exploration right heel Ganglion cyst H/O bariatric surgery H/O breast biopsy H/O dilation and curettage H/O umbilical hernia repair History of carpal tunnel surgery History of dilatation and curettage History of gastric bypass History of right breast biopsy S/P carpal tunnel release Social History (Updated 10/15/17 @ 16:[address] Marlena Strong, ) Smoking Status: Never smoker alcohol intake: never substance use type: does not use ROS ROS ED Constitutional Constitutional ED: Reports systems reviewed and no addt'l complaints, except as documented; Denies body ache(s), change in weight or chills Eyes Eyes: Denies acute decrease in peripheral vision, change in vision, double vision or loss of vision ENT ENT ED: Reports none; Denies ear pain, lip swelling, loss taste/smell, neck pain, otalgia or sore throat Cardiovascular Cardiovascular: Reports none; Denies abdominal pain, chest pain with activity, leg edema, lightheadedness, palpitations, rapid heart rate or syncope Respiratory/Chest Respiratory/Chest: Reports none; Denies change in mental status, dry cough, dyspnea, hemoptysis, shortness of breath at rest or shortness of breath with exertion Gastrointestinal Gastrointestinal: Reports none, diarrhea and nausea; Denies abdominal pain, change in stool character, hematemesis, hematochezia, melena, rectal bleeding or vomiting Genitourinary Genitourinary ED: Reports none; Denies abdominal discomfort, anuria, dysuria, genital pain or polyuria Musculoskeletal Musculoskeletal: Reports none; Denies arthralgias, back pain, difficulty walking, extremity pain, muscle weakness or myalgias Integumentary Reports none; Denies abscess or rash Neurologic Neurologic: Reports none; Denies abnormal gait, confusion, focal weakness, fr equent falls, headache(s), loss of vision, numbness, paresthesias, radicular pain, vertigo or weakness Psychiatric Psychiatric: Reports systems reviewed and no addt'l complaints, except as documented and none; Denies behavioral changes, confusion, difficulty concentrating, hallucinations, suicidal ideation, tactile hallucinations or visual hallucinations Endocrine Endocrinology: Denies none, cold intolerance, excessive sweating, fatigue or heat intolerance Hematologic/Lymphatic Hematologic/Lymphatic: Reports none; Denies anemia, easy bleeding or easy bruising Allergic/Immunologic Allergic/Immunologic ED: Denies as per HPI, none, lip swelling, mouth swelling, throat swelling, tongue swelling or hives EXAM Physical Exam Const Vital Signs: 06/11/21 16:59 Temperature 96.9 F L Temperature Source Temporal Pulse Rate 74 Respiratory Rate 15 Blood Pressure 127/65 H Blood Pressure Mean 85 Pulse Ox 97 Oxygen Delivery Method Room Air Positive well nourished and well developed General Appearance ED: well developed and NAD HEENT Reports TM's clear and moist mucous membranes normocephalic and atraumatic; Negative for trauma or tenderness Tympanic Membrane ED: Yes TM's clear Eyes PERRL and EOMs intact bilaterally General Eye ED: Negative for pale conjunctiva or scleral icterus Neck no lymphadenopathy, supple and no JVD General: Negative for tenderness Chest Wall inspection of chest normal and palpation of chest normal Chest: Negative for tenderness Resp normal respiratory effort and clear to auscultation bilaterally Effort and Inspection: Negative for respiratory distress or pain with movement Auscultation: Negative for rhonchi, wheezes or diminished lung sounds Cardio regular rate, regular rhythm, S1 normal heart sound, S2 normal heart sound and no murmurs Peripheral Pulses: pulses 2+ throughout GI normal to inspection, nondistended, normoactive bowel sounds, soft to palpation, non-tender, non-distended and no masses Back/Spine no CVA tenderness and no thoracic nor lumbar tenderness Extremity normal to inspection General Extremety ED: Negative for edema General Extremity: Negative for edema Neuro oriented x3, CN's II-XII intact bilaterally, no sensory deficits noted and gait normal Sensorium / Orientation: awake, alert, oriented to person, oriented to place and oriented to time Motor Exam: strength 5/5 throughout and strength abnormal Psych mental status grossly normal Skin no rashes or lesions noted and no wounds MDM MDM MDM Narrative Medical decision making narrative: IV line established on arrival. Patient was given a liter normal same fluid bolus. Patient had stool ordered for enteric pathogens however she was unable to give a sample. At this point I still suspect a viral etiology. Patient will be started on Lomotil and Zofran. Patient advised to push fluids. She is to follow-up with primary care physician in 3 to 5 days. Patient advised to return if persistent diarrhea, vomiting, severe abdominal pain, or condition should worsen anyway. Lab Data Attestation: I reviewed the patient's lab results. Labs: Laboratory Results - last 24 hr 06/11/21 06/11/21 17:30 17:30 WBC 5.5 RBC 4.20 Hgb 12.7 Hct 39.3 MCV 93.6 MCH 30.2 MCHC 32.3 RDW Std Deviation 47.8 H RDW Coeff of Alistair 14.0 Plt Count 236 MPV 8.9 Immature Gran % (Auto) 0.200 Neut % (Auto) 47.0 Lymph % (Auto) 40.1 Letcher % (Auto) 10.4 H Eos % (Auto) 1.8 Baso % (Auto) 0.5 Absolute Neuts (auto) 2.6 Absolute Lymphs (auto) 2.20 Nucleated RBC % 0 Sodium 141 Potassium 3.8 Chloride 108 H Carbon Dioxide 26.0 Anion Gap 7 BUN 8 Creatinine 0.76 Estim Creat Clear Calc 69.09 Est GFR (MDRD) Af Amer 98 Est GFR (MDRD) Non-Af 81 BUN/Creatinine Ratio 10.5 Glucose 97 Calcium 8.7 Discharge Plan Triage Chief Complaint: Diarrhea ED Provider: Perla Ceja Dx/Rx/DC Orders Clinical Impression: Viral gastroenteritis Instructions: ED Gastroenteritis, Viral (Adult) Prescriptions: New ondansetron [ondansetron] 4 MG tablet 4 mg PO Q8H PRN PRN (Reason: Nausea) Qty: 10 RF: 0 diphenoxylate-atropine [Lomotil] 2.5-0.025 mg tablet 2 tab PO Q8H PRN (Reason: diarrhea) Qty: 20 RF: 0 No Action omega 2-yuz-cjt-fish oil [Fish Oil] 1,000 mg (120 mg-180 mg) capsule 1,000 cap PO DAILY RF: 0 prenat.vits,jarocho,pob-vwrx-qokvm tablet 1 tab PO QDAY RF: 0 docusate sodium [Stool Softener] 100 mg capsule 100 mg PO QDAY RF: 0 calcium carbonate [Calcium 500] 500 mg calcium (1,250 mg) tablet,chewable 500 mg PO BID RF: 0 magnesium oxide 400 mg capsule 400 mg capsule 400 mg PO QDAY RF: 0 losartan 50 mg tablet 50 mg PO QHS RF: 0 metoprolol succinate 25 mg tablet extended release 24 hr 25 mg PO DAILY RF: 0 cholecalciferol (vitamin D3) 2,000 unit capsule 2,000 unit PO QDAY RF: 0 chlorpheniramine maleate [ChlorTabs] 4 mg tablet 4 mg PO QHS RF: 0 biotin 1,000 mcg tablet,chewable 4,000 mcg PO QDAY RF: 0 acetaminophen [Tylenol Extra Strength] 500 mg tablet 500 mg PO Q4H PRNRF: 0 Kenalog 10 mg/mL suspension for injection 10 mg/mL suspension 80 mg INTRAARTIC ONCE Qty: 8 RF: 0 cyanocobalamin (vitamin B-12) 500 MCG tablet 500 mcg PO DAILY@0800 RF: 0 paroxetine HCl 20 MG tablet 20 mg PO DAILY RF: 0 Primary Care Provider: Selma Walker Referrals: Selma Walker MD [Primary Care Provider] - 3-5 Days Disposition Disposition: Home, Self Care
[2021-06-11] MEDS: Ondansetron 4 MG/2 ML Vial IV (17:34)
[2021-06-11] MEDS: 0.9% Normal Saline 1,000 ML 1000 ML IV (17:35)
[2021-06-11 17:42] LABS: Absolute Neutrophil Count 2.6 X10^3/uL (2.0-7.7); Basophil# 0.03 X10^3/uL; Basophil% 0.5 % (0-1); Eosinophils% 1.8 % (0-5); Hematocrit 39.3 % (37-47); Hemoglobin 12.7 g/dL (12.0-15.0); Lymphocyte % 40.1 % (19-41); Mean Corp Hgb Conc 32.3 g/dL (32-36); Mean Corpuscular Hgb 30.2 pg (27.0-32.0); Mean Corpuscular Volume 93.6 fL (81-99); Mean Platelet Vol. 8.9 fl (6.2-12.0); Monocyte# 0.57 X10^3/uL; Monocyte% 10.4 % (0-10); NRBC Flagged by Analyzer 0 % (0-5); Neutrophil # 2.58 X10^3/uL (2.7-7.7); Platelet Count 236 K/mm3 (150-450); RBC Distribution Width SD 47.8 fl (35.1-43.9); White Blood Count 5.5 K/mm3 (4.4-11.0)
[2021-06-11 18:01] LABS: Anion Gap 7 (5-15); BUN 8 mg/dL (7-18); BUN/Creat Ratio 10.5 RATIO (10-20); Calcium,Total 8.7 mg/dL (8.5-10.1); Chloride 108 mmol/L (98-107); Creatinine, Serum 0.76 mg/dL (0.55-1.02); EST Glomerular Filtration Rate 81 mL/min (>60); Est Glom Filt Rate - Afr Amer 98 mL/min (>60); Estimated Creatinine Clearance 69.09 ml/min; Glucose 97 mg/dL (74-106); Potassium 3.8 mmol/L (3.5-5.1); Sodium Level 141 mmol/L (136-145)
== END 2021-06-11 20:00 | disposition home or self-care (01) ==
PROVIDERS: Emergency Provider Emergency Medicine; PCP Family Medicine; Visit Provider Emergency Medicine
DX: A08.4 Viral intestinal infection, unspecified (principal); E11.9 Type 2 diabetes mellitus without complications; I10 Essential (primary) hypertension; F41.9 Anxiety disorder, unspecified; G47.33 Obstructive sleep apnea (adult) (pediatric); K21.9 Gastro-esophageal reflux disease without esophagitis; Z79.899 Other long term (current) drug therapy; Z98.84 Bariatric surgery status
CPT/HCPCS: 80048; 85025; 96361; 96374; 99283; J7030; A4216; J2405